=== PATIENT | female | born 1990 | race Caucasian/White ===

== ENCOUNTER → 2023-04-01 | Outpatient (CLI) | payer BC ==
--- NOTE | 2023-04-01 13:40 | Diagnostic Imaging Report ---
INDICATION: Encounter for supervision of normal , anatomic survey. TECHNIQUE: Multiple real-time grayscale images were obtained over the gravid uterus. COMPARISON: None FINDINGS: Number: 1 Presentation: Cephalic. Placenta: Anteriorly located without placenta previa. Amniotic Fluid: BELKIS is 15.9 cm. Single largest vertical pocket is 4.8 cm. Heart Rate: 149 bpm biometrics are symmetric and consistent with an estimated gestational age of 20 weeks and 1 day. This is consistent with clinical dating. FINDINGS: The anatomic survey is grossly unremarkable. The stomach, four-chamber heart, kidneys, bladder, three-vessel cord and the cord insertion are well seen. The spine and intracranial structures are grossly unremarkable. Biometrical measurements are as follows: Biparietal 4.58 cm, age 19 weeks 6 days. Head circumference 16.97 cm, age 19 weeks 5 days. Abdominal circumference 13.84 cm, age 19 weeks 2 days. Femur length 3.65 cm, age 21 weeks 5 days. Sonographic estimate age: 20 weeks 1 days. Sonographic estimated date of delivery: 08/18/23. Estimated Weight: 342 gm (+/- 50 gm). LMP percentile: 51%. heart rate: 149 beats per minute. number: 1 of 1. IMPRESSION: Single live intrauterine at approximately 20 weeks and 1 day, with an REINALDO of 08/18/2023. These are consistent with clinical dates. No gross abnormalities are seen at this time. Dictated by: Dictated on workstation # [id number]
== END ==
LOC: RAD 09:09
PROVIDERS: ATTEND Nurse Practitioner Women's Health
DX: Z34.02 Encounter for supervision of normal first pregnancy, second trimester (principal); Z3A.20 20 weeks gestation of pregnancy
CPT/HCPCS: 76805